=== PATIENT | male | born 1970 | race Caucasian/White ===

== ENCOUNTER 2019-09-07 13:53 | Emergency (ER) | payer MEDICARE, SELFPAY ==
[2019-09-07 13:59] VITALS: BP 140/74; PULSE 81; RESP 16; TEMP 36.8; O2SAT 95; BMI 38.7
--- NOTE | 2019-09-07 14:07 | ED_ITS ---
Entered by Gina Gallo, acting as scribe for Russell Houston DO Sep 07, 2019 13:53 HPI - Chest Pain General: Chief Complaint: Chest Pain Stated Complaint: CP Time Seen by Provider: 09/07/19 14:24 History of Present Illness: HPI narrative: 49 yo male presents with chest pain. Pt states that his chest pain is radiating down his left arm. Pt states that he has had this pain for about a week. pt states that the only relief he has is when he sleeps. Pt states that he is more fatigued than usual. Pt states that he has high blood pressure. Pt states that his pain will worsen with exacerbation. MD complaint: chest pain Associated symptoms: Deny abdominal pain, dyspnea, fever(s), nausea or vomiting Review of Systems Const: Denies: fever, chills, body aches, fatigue, malaise or night sweats Eyes: Denies: change in vision or blurry vision ENMT: Denies: throat pain, oral sores/lesions, dental pain, nasal discharge or nasal congestion Card: Reports: chest pain and other (pain with palpation) Resp: Denies: shortness of breath, productive cough, non-productive cough or wheezing GI: Denies: abdominal pain, nausea, vomiting, vomiting blood, coffee grounds in vomit, difficulty swallowing, heartburn/indigestion, diarrhea, constipation, cramping, blood in stool or black tarry stool : Denies: flank pain, difficulty urinating, painful urination, urinary frequency, urinary urgency, urinary incontinence or blood in urine Musc: Denies: neck pain, back pain, extremity pain, extremity swelling, joint pain or joint swelling Skin/Breast: Denies: rash, itching or redness Neuro: Denies: headache, numbness in extremities, weakness in extremities, changes in sensation, lack of coordination, difficulty walking, frequent falls, dizziness, vertigo or confusion Psych: Denies: anxiety, depression, loss of interest, visual hallucinations, auditory hallucinations, suicidal ideation or homicidal ideation Endo: Denies: excessive urination, excessive thirst, tired all the time or cold intolerance Indra/Lymph: Denies: easy bruising, easy bleeding, petechiae, enlarged lymph nodes or tender lymph nodes PFSH ED PFSH: Statuses (acute, chronic, etc) shown below reflect problem list status as previously entered and may not be historically accurate Medical History Hypertension (Acute) Surgical History History of shoulder surgery (Acute) Social History Smoking and tobacco status: current every day smoker Physical Exam Const: COMMON NORMALS: average body habitus, oriented x3 and alert GENERAL APPEARANCE: cooperative, comfortable, well kempt and well developed NUTRITIONAL APPEARANCE: obese ORIENTATION/CONSCIOUSNESS: Yes awake, Yes oriented to person and Yes oriented to place HENMT: COMMON NORMALS: normocephalic, head/scalp atraumatic, EAC's normal, TM's normal bilaterally, external nose normal, moist oral mucous membranes and oropharynx normal HEAD & SCALP: normocephalic and atraumatic NOSE: external nose normal EXTERNAL AUDITORY CANAL: EAC's normal TYMPANIC MEMBRANE: TM's normal bilaterally MOUTH: oral and palatal mucosa normal, lip normal and tongue normal THROAT: posterior oropharynx normal and tonsils n ormal Eye: COMMON NORMALS: PERRL, EOMs intact bilaterally, conjunctivae normal and no scleral icterus CONJUNCTIVA: Yes conjunctivae normal PUPIL: Yes PERRL Neck/C-Spine: COMMON NORMALS: full ROM, no lymphadenopathy, supple, no meningeal signs and thyroid normal THYROID: thyroid normal and asymmetrical Lymph: LYMPHATIC: no lymphadenopathy noted Resp: COMMON NORMALS: normal respiratory effort, no retractions, no use of accessory muscles and clear to auscultation bilaterally AUSCULTATION: clear to auscultation bilaterally Cardio: COMMON NORMALS: regular rate and regular rhythm RATE: regular rate RHYTHM: regular rhythm HEART SOUNDS: no murmurs GI: COMMON NORMALS: normal to inspection, nondistended, normoactive bowel sounds, soft to palpation and no hepatosplenomegaly PALPATION: Yes soft and Yes no hepatosplenomegaly : COMMON NORMALS: Yes no CVA tenderness BLADDER/KIDNEY EXAM: Yes no CVA tenderness Back/Pelvis: COMMON NORMALS: no CVA tenderness LUMBAR SPINE/LOWER BACK: Yes normal to inspection Extremity: COMMON NORMALS: no clubbing, cyanosis or edema, no calf tenderness and no pedal edema Neuro: COMMON NORMALS: oriented x3 SENSORIUM/ORIENTATION: Yes alert, Yes oriented to person and Yes oriented to place MENINGEAL SIGNS: Yes no meningeal signs Psych: APPEARANCE: Yes well kempt Skin: COMMON NORMALS: no rashes or lesions noted and skin turgor normal GENERAL SKIN EXAM: no rashes or lesions noted and turgor normal Course ED course: He has had this for several weeks actually we will go ahead and discharge him home set him up for an outpatient stress test. Vital Signs: Vital signs: Vital Signs Temperature 98.3 F 09/07/19 13:59 Pulse Rate 82 09/07/19 17:32 Respiratory Rate 18 09/07/19 17:32 Blood Pressure 104/65 09/07/19 17:32 Pulse Oximetry 98 09/07/19 17:32 MDM - Chest Pain Lab Data: Labs: Lab Results 09/07/19 09/07/19 09/07/19 Range/Units 14:36 14:36 14:36 WBC 10.9 H (4.0-10.0) 10^3/ uL RBC 5.54 H (4.1-5.3) 10^6/u L Hgb 15.8 (11.7-16.6) g/dL Hct 46.7 (42.0-52.0) % MCV 84.3 (80-94) fL MCH 28.5 (28.0-34.0) pg MCHC 33.8 (30.0-36.0) g/dL RDW 12.7 (12.1-15.1) % Plt Count 242 (130-400) 10^3/c mm MPV 10.6 H (7.4-10.4) fL Neut % (Auto) 71.9 % Lymph % (Auto) 21.0 % [place] % (Auto) 4.2 % Eos % (Auto) 2.1 % Baso % (Auto) 0.5 % Neut # (Auto) 7.9 H (1.8-7.7) 10^3/u L Lymph # (Auto) 2.3 (0.8-4.8) 10^3/u L [place] # (Auto) 0.5 (0.2-0.9) 10^3/u L Eos # (Auto) 0.2 (0.0-0.8) 10^3/u L Baso # (Auto) 0.1 (0.0-0.1) 10^3/u L Nucleated RBC % (a uto) 0 % Nucleated RBCs # 0.0 /100WBC Sodium 137 (136-145) mmol/L Potassium 3.6 (3.5-5.1) mmol/L Chloride 98 (98-107) mmol/L Carbon Dioxide 25 (22-29) mmol/L Anion Gap 17.6 (5-19) BUN 13 (6-20) mg/dL Creatinine 1.2 (0.7-1.2) mg/dL GFR Calculation 64.9 L (90-130) mL/min Glucose 166 H (65-115) mg/dL Calcium 9.9 (8.5-10.5) mg/dL Total Bilirubin 0.4 (0.15-1.2) mg/dL AST 19 (0-40) U/L ALT 26 (0-41) U/L Alkaline Phosphata se 99 (40-130) IU/L Troponin T Baselin e 7 (0-15) ng/mL Troponin T 120 Min [place] (0-15) ng/mL Delta Troponin T (0-10) ABS# Total Protein 6.9 (6.6-8.7) g/dL Albumin 4.0 (3.5-5.2) g/dL Globulin 2.9 (1.3-4.6) g/dL 09/07/19 Range/Units 16:34 WBC (4.0-10.0) 10^3/ uL RBC (4.1-5.3) 10^6/u L Hgb (11.7-16.6) g/dL Hct (42.0-52.0) % MCV (80-94) fL MCH (28.0-34.0) pg MCHC (30.0-36.0) g/dL RDW (12.1-15.1) % Plt Count (130-400) 10^3/c mm MPV (7.4-10.4) fL Neut % (Auto) % Lymph % (Auto) % [place] % (Auto) % Eos % (Auto) % Baso % (Auto) % Neut # (Auto) (1.8-7.7) 10^3/u L Lymph # (Auto) (0.8-4.8) 10^3/u L [place] # (Auto) (0.2-0.9) 10^3/u L Eos # (Auto) (0.0-0.8) 10^3/u L Baso # (Auto) (0.0-0.1) 10^3/u L Nucleated RBC % (a uto) % Nucleated RBCs # /100WBC Sodium (136-145) mmol/L Potassium (3.5-5.1) mmol/L Chloride (98-107) mmol/L Carbon Dioxide (22-29) mmol/L Anion Gap (5-19) BUN (6-20) mg/dL Creatinine (0.7-1.2) mg/dL GFR Calculation (90-130) mL/min Glucose (65-115) mg/dL Calcium (8.5-10.5) mg/dL Total Bilirubin (0.15-1.2) mg/dL AST (0-40) U/L ALT (0-41) U/L Alkaline Phosphata se (40-130) IU/L Troponin T Baselin e (0-15) ng/mL Troponin T 120 Min [place] 9.28 (0-15) ng/mL Delta Troponin T 2.28 (0-10) ABS# Total Protein (6.6-8.7) g/dL Albumin (3.5-5.2) g/dL Globulin (1.3-4.6) g/dL Discharge Plan Discharge Patient Disposition: Home, Self-Care Clinical Impression: Atypical chest pain Condition: Stable Prescriptions: No Action aspirin 325 mg Tablet 325 mg PO DAILY RF: 0 lisinopril 20 mg Tablet 20 mg PO DAILY RF: 0 Discharge Orders: Discharge Order (Routine); Ordered 09/07/19 Ordered By: Russell Houston Referrals: Ananda Mccann MD [Primary Care Provider] - Discharge Diet: Usual diet Discharge Activity: Increase activity as tolerated Activity Restrictions/Additional Instructions: Case management will call with schedule a stress test, return for worsening problems Discharge Date/Time: 09/07/19 17:33 Coding Level of Care Code ED Transition Lead for Chg Fwd Exam Problem Focused The documentation recorded by the Sabino galeana Kialy, accurately reflects the service I personally performed and the decisions made by Celso munoz Curtis L, DO Sep 07, 2019 13:53
[2019-09-07 14:15] VITALS: BP 123/73; PULSE 72; RESP 18; O2SAT 96
--- NOTE | 2019-09-07 14:32 | ECG_ITS ---
Measurements Intervals [place] Rate: 83 P: 37 [place]: 136 QRS: -1 QRSD: 102 T: 52 QT: 358 QTc: 423 SINUS RHYTHM VOLTAGE CRITERIA FOR LVH [MEETS CRITERIA IN ONE OF: R(aVL), S(V1), R(V5), R(V5/V6) NONSPECIFIC T-WAVE ABNORMALITY No previous ECG available for comparison Electronically Signed On 09-08-2019 0:19:55 FITNESS DIRECTOR by Eve Chatterjee M.D. [id number]
--- NOTE | 2019-09-07 14:33 | XR_ITS ---
WS: [id number] ONE VIEW CHEST HISTORY: 49 years old Male with chest pain AP upright chest no comparison FINDINGS: No pneumothorax, pleural effusion, consolidation. Lung volumes decreased. Heart size and pulmonary va scular markings unremarkable. No subdiaphragmatic free air. Prior left rotator cuff repair XR/XR chest 1V portable [id number] IMPRESSION: Low lung volumes without definite acute cardiopulmonary findings.
[2019-09-07 15:00] LABS: Basophils # 0.1 10^3/uL (0.0-0.1); Basophils % 0.5 %; Eosinophils # 0.2 10^3/uL (0.0-0.8); Eosinophils % 2.1 %; Hematocrit 46.7 % (42.0-52.0); Hemoglobin 15.8 g/dL (11.7-16.6); Lymphocytes # 2.3 10^3/uL (0.8-4.8); Mean Corpuscular HGB Conc 33.8 g/dL (30.0-36.0); Mean Corpuscular Hemoglobin 28.5 pg (28.0-34.0); Mean Corpuscular Volume 84.3 fL (80-94); Mean Platelet Volume 10.6 fL (7.4-10.4); Monocytes # 0.5 10^3/uL (0.2-0.9); Monocytes % 4.2 %; Neutrophils # 7.9 10^3/uL (1.8-7.7); Neutrophils % 71.9 %; Nucleated Red Blood Cells % 0 %; Platelet Count 242 10^3/cmm (130-400); Red Blood Count 5.54 10^6/uL (4.1-5.3); Red Cell Distribution Width 12.7 % (12.1-15.1); White Blood Count 10.9 10^3/uL (4.0-10.0)
[2019-09-07 15:20] LABS: Alanine Aminotransferase 26 U/L (0-41); Alkaline Phosphatase 99 IU/L (40-130); Anion Gap 17.6 (5-19); Aspartate Amino Transferase 19 U/L (0-40); Blood Urea Nitrogen 13 mg/dL (6-20); Calcium 9.9 mg/dL (8.5-10.5); Carbon Dioxide 25 mmol/L (22-29); Chloride 98 mmol/L (98-107); Globulin 2.9 g/dL (1.3-4.6); Glomerular Filtration Rate 64.9 mL/min (90-130); Glucose 166 mg/dL (65-115); Potassium 3.6 mmol/L (3.5-5.1); Sodium 137 mmol/L (136-145); Total Bilirubin 0.4 mg/dL (0.15-1.2); Total Protein 6.9 g/dL (6.6-8.7)
[2019-09-07 15:21] LABS: Troponin(5th) Baseline 7 ng/mL (0-15)
[2019-09-07 17:12] LABS: Troponin 5 2HR 9.28 ng/mL (0-15); Troponin 5 2HR Delta 2.28 ABS# (0-10)
[2019-09-07 17:32] VITALS: BP 104/65; PULSE 82; RESP 18; O2SAT 98
--- NOTE | 2019-09-07 20:32 | ECG_ITS ---
Measurements Intervals [place] Rate: 71 P: 25 NE: 170 QRS: 5 QRSD: 91 T: 11 QT: 386 QTc: 421 SINUS RHYTHM VOLTAGE CRITERIA FOR LVH [MEETS CRITERIA IN ONE OF: R(aVL), S(V1), R(V5), R (V5/V6)+S(V1)] NONSPECIFIC T-WAVE ABNORMALITY No previous ECG available for comparison Electronically Signed On 09-08-2019 0:22:04 REFRESH TECHNICIAN by Eve Chatterjee M.D. [id number]
--- NOTE | 2019-09-13 08:27 | DCPLANNER ---
sales operations manager had message to schedule an outpatient stress test for patient. sales operations manager called patient to confirm that patient still wanted to have test completed, unable to reach patient.
== END 2019-09-07 17:33 | disposition home or self-care (01) ==
PROVIDERS: Emergency Provider Family Medicine; Family Provider Anesthesiology; PCP Anesthesiology
DX: R07.89 Other chest pain (principal); Z79.82 Long term (current) use of aspirin; I10 Essential (primary) hypertension; F17.210 Nicotine dependence, cigarettes, uncomplicated
CPT/HCPCS: 36415; 71045; 80053; 84484; 85025; 93005; 99283; 99284

== ENCOUNTER 2022-05-30 06:13 | Observation (INO) | payer MEDICARE, SELFPAY ==
[2022-05-30] VITALS (12 sets, daily range): BP systolic 136–169; BP diastolic 66–91; PULSE 45–61; RESP 16–20; TEMP 36.5–37.1; O2SAT 92–98; BMI 38.2
--- NOTE | 2022-05-30 07:14 | P.HP_ITS ---
Providers/Chief Complaint Admitting Physician: Jeremy Mares MD Primary Care Provider: Ananda Mccann MD Chief Complaint: chest pain History of Present Illness Angel Mckeon is a 52 year old male who presents with 1 week of chest discomfort on and off with nausea. He reports this first started 6 days ago, in his lower chest. It was stabbing, and he had associated sweating and nausea. He reports the first time he had it was at a bingo game, not necessarily stressful and certainly not exertional. He had several other recurrences through the week, and on Monday had a rather prolonged recurrence. He reports his upper abdomen hurts at the same time, he gets sweaty, and nauseated. He did not vomit. He reports no constipation or diarrhea. He has noticed no blood in his stool or black or tarry stools. On Monday he took some aspirin, and at the prompting of his girlfriend came into the hospital at [facility]. Sublingual nitroglycerin was given, and then nitroglycerin drip initiated. Hydralazine IV was given for hypertension. During the time at [facility] patient reported he had significant resolution of chest discomfort with treatment, but headache. He was not given any anticoagulation. From what I can decipher his troponin was not elevated. Patient reports 3 years ago he was evaluated for discomfort at [facility], and had an angiogram that demonstrated no disease. Review of Systems General: Reports: 10 or more systems reviewed and unremarkable except in HPI and below Const: Denies: fever(s) or chills Eyes: Denies: change in vision ENMT: Denies: throat pain Card: Reports: chest pain; Denies: swelling of feet/ankles or dyspnea on exertion Resp: Denies: dyspnea GI: Reports: abdominal pain and nausea; Denies: vomiting, hematemesis, hematochezia or melena : Denies: flank pain Musc: Denies: neck pain Skin/Breast: Denies: rash Neuro: Denies: headache(s) Psych: Denies: anxiety or depression Endo: Denies: polyuria Indra/Lymph: Denies: easy bruising All/Imm: Denies: urticaria Medications/Allergies Home Medications Medication Instructions Recorded Confirmed Last Taken Type aspirin 325 mg tablet 325 mg PO DAILY 09/07/19 09/07/19 09/07/19 History lisinopril 20 mg tablet 20 mg PO DAILY 09/07/19 09/07/19 09/07/19 History Allergies Allergy/AdvReac Type Severity Reaction Status Date / Time No Known Allergies Allergy Verified 09/07/19 14:03 PFSH Acute PFSH: Medical History (Updated 05/30/22 @ 07:54 by Jeremy Mares MD) Hypertension Obesity Surgical History History of shoulder surgery History of tonsillectomy Family History (Updated 05/30/22 @ 07:51 by Jeremy Mares MD) Other Hypertension Social History (Updated 05/30/22 @ 07:18 by Jeremy Mares MD) Smoking and tobacco status: current every day smoker Alcohol intake: never Other PFSH information: Supplemental PFSH Information: Adopted, but knew some history regarding parent who he reports of hypertension. Vitals/I&O/Wt Last Vital Signs Temp 97.8 F 05/30/22 06:37 Pulse 45 L 05/30/22 07:08 Resp 17 05/30/22 06:37 BP 169/78 05/30/22 06:37 Pulse Ox 98 05/30/22 06:37 O2 Del Method 05/30/22 06:18 Weight last 48 hrs Weight 110.677 kg Physical Exam Narrative: General exam complaining of a headache, wanting nitroglycerin off HEENT atraumatic and normocephalic. Pupils equally round. Oropharynx clear. Neck is supple no lymphadenopathy or thyromegaly Cardiovascular regular rate and rhythm without murmur, no S3 or S4 Lungs are clear no wheezing or crackles Abdomen is soft, tenderness is noted in the epigastric area. No obvious organomegaly. exam is deferred Extremities no cyanosis clubbing or edema, cap refill brisk Skin no rash Neuro no obvious focal deficits. Data Other Labs: EKG demonstrates sinus bradycardia with a rate of 50, left axis deviation, nonspecific ST and T wave changes. Chest x-ray was read as no acute disease Lipase normal Troponin not detectable White blood cell count 7.4, hemoglobin 13.8, platelet count 221,000 Glucose elevated at 150, creatinine 1.0, sodium 141, potassium 3.6, chloride 104, bicarb 27, calcium 9.1, LFTs normal, magnesium 2.1 INR 1.0 A&P Assessment and plan (1) Chest pain: Patient presents with significant chest pain. This is somewhat atypical. Records I have from [facility] indicate his troponin was normal. Observation currently Repeat troponin and EKG series Telemetry Wean down nitroglycerin to off if able. He is having a significant headache. Echocardiogram Request records from [facility] regarding previous angiogram He has already had aspirin today (2) Abdominal pain: Lipase and LFTs were normal Could represent peptic ulcer disease No focal tenderness right upper quadrant GI cocktail, initiate Protonix twice daily If discomfort persists, consider CT (3) Hyperglycemia: Check hemoglobin A1c (4) Hypertension: Blood pressure is markedly elevated at [facility]. Patient stopped taking his blood pressure medicine 4 months ago or so Initiate lisinopril 20 mg daily, first dose now Hydralazine as needed Avoid beta-blockers secondary to his bradycardia, which patient reports is his baseline. This appears to be sinus bradycardia. Plan Other medical problems as listed in past medical history Full code Lovenox for DVT prophylaxis Attestations Medical Necessity Statement*: Will require less than 2 midnight stay for evaluation and treatment of chest discomfort. Coding Level of Care Code Acute Senior Support Engineer for Chg Fwd Diagnoses Chest pain R07.9 Abdominal pain R10.9 Hyperglycemia R73.9 Hypertension I10
--- NOTE | 2022-05-30 07:52 | USCV_ITS ---
Angel Mckeon Age: 52 Gender: M : 1970 Exam Date: 05/30/2022 08:37 Ordering Phys: Jeremy Mares MD Technologist: Shawn Bhakta Exam Location: [facility] [place] Indication: chest pain BP: 161 / 91 HR: 48 Rhythm: Sinus Technical Quality: Adequate MEASUREMENTS (Male / Female) Normal Values 2D ECHO LV Diastolic Diameter PLAX 6.0 cm 4.2 - 5.9 / 3.9 - 5.3 cm LV Systolic Diameter PLAX 3.1 cm IVS Diastolic Thickness 0.7 cm 0.6 - 1.0 / 0.6 - 0.9 cm IVS Systolic Thickness 1.2 cm LVPW Diastolic Thickness 1.3 cm 0.6 - 1.0 / 0.6 - 0.9 cm LVPW Systolic Thickness 1.4 cm LVOT Diameter 2.0 cm LV Ejection Fraction 2D Teich 78.8 % LV Ejection Fraction MOD 2C 68.0 % LV Ejection Fraction 2C AL 70.4 % LA Diameter 3.5 cm LA Width 3.5 cm LA Height 5.5 cm RA Width 3.7 cm RA Height 4.7 cm Aorta at Sinotubular Diameter 3.2 cm IVC Diameter 1.6 cm M-MODE Aortic Annulus Diameter 3.4 cm LA Ao Ratio MM 1.0 MV E Point Septal Separation 0.4 cm DOPPLER AV Peak Velocity 165.7 cm/s LVOT Peak Velocity 130.0 cm/s AV Area Cont Eq vti 3.0 cm squared AV Area Cont Eq pk 2.5 cm squared MV Peak Velocity 99.0 cm/s MV Area PHT 4.1 cm squared Mitral E to A Ratio 0.9 MV E' Velocity 35.0 cm/s Mitral E to MV E' Ratio 10.1 Mitral E to LV E' Lateral Ratio 9.5 Mitral E to LV E' Septal Ratio 10.9 TR Peak Velocity 291.5 cm/s TR Peak Gradient 34.0 mmHg TR Mean Velocity 219.1 cm/s TR Mean Gradient 20.6 mmHg TR Velocity Time Integral 88.6 cm Right Atrial Pressure 3.0 mmHg Pulmonary Artery Systolic Pressu 37.0 mmHg PV Peak Velocity 84.0 cm/s RV Acceleration Time 0.1 s RV Ejection Time 0.3 s RV AcT/ET 0.4 FINDINGS Left Ventricle Normal left ventricular size and systolic function, EF 75 %. Mild left ventricular hypertrophy. No regional wall motion abnormalities. Right Ventricle The right ventricle is normal in size and function. Right Atrium The right atrium is normal in size. Left Atrium The left atrium is normal in size. Mitral Valve No significant stenotic or regurgitant lesions Aortic Valve Thickened aortic valve. Tricuspid Valve Trace tricuspid valve regurgitation. Pulmonic Valve Structurally normal pulmonic valve without significant stenosis. There is no pulmonic regurgitation. Pericardium Normal pericardium without effusion. Aorta Normal ascending aorta dimension. IVC Normal inferior vena cava. CONCLUSIONS Normal left ventricular size and systolic function, EF 75 %. Mild left ventricular hypertrophy. No regional wall motion abnormalities. Thickened aortic valve. [id number] Trace tricuspid valve regurgitation. Estimated pulmonary artery peak systolic pressure 37 mmHgthere is no pericardial effusion. There are no intracardiac masses. No similar previous studies are available for comparison Dr Ariella Thacker MD FACC (Electronically Signed) Final Date: 30 May 2022 17:09 S
[2022-05-30] MEDS: morphine 4 mg/mL SDV 1 mL 2 MG IVP ×2 (08:17→20:25)
[2022-05-30] MEDS: lisinopril 20 mg Tablet PO (08:17)
[2022-05-30] MEDS: enoxaparin 40 mg/0.4 mL Syringe SUBCUT (08:18)
[2022-05-30] MEDS: lidocaine 2% viscous 15 ML, aluminum-mag hydrox-simethicon 30 ML, sucralfate oral liq 1 GM PO (08:26)
[2022-05-30] MEDS: pantoprazole 40 mg SDV IVP ×2 (08:29→20:14)
[2022-05-30] MEDS: ondansetron 2 mg/ML SDV 2 mL 4 MG IVP ×2 (08:29→20:23)
[2022-05-30 08:32] LABS: Estmated Average Glucose 111; Hemoglobin A1C 5.5 % (4.0-6.0)
[2022-05-30 08:42] LABS: Troponin(5th) Baseline 8 ng/L (0-15)
--- NOTE | 2022-05-30 08:56 | PC.NURSE ---
Nitro drip stopped at 0825 am from a 2.[address] Suzan Haider. Patient was complaining of severe headache. Morphine given for severe headache. GI cocktail also given. Xray in room currently for chest xray. Girlfriend at bedside.
[2022-05-30 08:58] LABS: Thyroid Stimulating Hormone 1.44 uIU/mL (0.27-4.20)
--- NOTE | 2022-05-30 09:24 | ECG_ITS ---
[facility] Test Date: 2022-05-30 Pat Name: Angel Mckeon Department: Room: 277 Gender: Male Grapple Crew Leader: : 1970 Requested By: Jeremy Pryor Order Number: [id number] Gianfranco MD: Jadon Mcclellan M.D. Measurements Intervals [place] Rate: 49 P: 23 MO: 169 QRS: -3 QRSD: 101 T: 5 QT: 454 QTc: 411 Interpretive Statements SINUS BRADYCARDIA VOLTAGE CRITERIA FOR LVH [MEETS CRITERIA IN ONE OF: R(aVL), S(V1), R(V5), R(V5/V6)+S(V1)] NONSPECIFIC T-WAVE ABNORMALITY Compared to ECG 09/07/2019 16:30:43 Sinus rhythm no longer present T-wave abnormality still present Electronically Signed On 05-30-2022 14:54:13 CDT by Jadon Mcclellan M.D. [id number]
--- NOTE | 2022-05-30 09:26 | ECG_ITS ---
[facility] Test Date: 2022-05-30 Pat Name: Angel Mckeon Department: Room: 277 Gender: Male Bistro Attendant: : 1970 Requested By: Jeremy Pryor Order Number: [id number] Gianfranco MD: Jadon Mcclellan M.D. Measurements Intervals [place] Rate: 55 P: 27 MS: 168 QRS: -7 QRSD: 94 T: 20 QT: 442 QTc: 423 Interpretive Statements SINUS BRADYCARDIA VOLTAGE CRITERIA FOR LVH [MEETS CRITERIA IN ONE OF: R(aVL), S(V1), R(V5), R(V5/V6)+S(V1)] NONSPECIFIC T-WAVE ABNORMALITY Compared to ECG 05/30/2022 09:24:06 No significant changes Electronically Signed On 05-30-2022 14:57:29 CDT by Jadon Mcclellan M.D. [id number]
[2022-05-30 10:47] LABS: Troponin 5 2HR 6.25 ng/L (0-15)
[2022-05-30 10:57] LABS: Troponin 5 2HR Delta -1.75 ABS# (0-10)
[2022-05-30] MEDS: oxyCODONE-APAP 5-325 mg Tablet 1 TAB PO (11:51)
--- NOTE | 2022-05-30 13:38 | ECG_ITS ---
[facility] Test Date: 2022-05-30 Pat Name: Angel Mckeon Department: Room: 277 Gender: Male Vibrating Screen Operator: : 1970 Requested By: Jeremy Pryor Order Number: [id number] Gianfranco MD: Jadon Mcclellan M.D. Measurements Intervals [place] Rate: 44 P: 21 FL: 164 QRS: -7 QRSD: 97 T: 4 QT: 466 QTc: 400 Interpretive Statements SINUS BRADYCARDIA VOLTAGE CRITERIA FOR LVH [MEETS CRITERIA IN ONE OF: R(aVL), S(V1), R(V5), R(V5/V6)+S(V1)] Compared to ECG 05/30/2022 09:56:12 T-wave abnormality no longer present Electronically Signed On 05-30-2022 14:57:45 CDT by Jadon Mcclellan M.D. [id number]
[2022-05-30 15:07] LABS: Troponin 5 6HR Delta -0.6 ng/L (0-12)
[2022-05-30] MEDS: acetaminophen 325 mg Tablet 650 MG PO (16:25)
--- NOTE | 2022-05-30 19:28 | PC.NURSE ---
Handoff report given to Piyush Mccray RN.
[2022-05-31] VITALS: BP 133/88; PULSE 48; RESP 14; TEMP 36.9; O2SAT 97
[2022-05-31 04:00] VITALS: BP 134/79; PULSE 73; RESP 30; TEMP 36.6; O2SAT 95
[2022-05-31 05:16] VITALS: RESP 16; O2SAT 95
[2022-05-31] MEDS: morphine 4 mg/mL SDV 1 mL 2 MG IVP (05:16)
[2022-05-31 05:17] LABS: Basophils % 0.3 %; Eosinophils # 0.1 10^3/uL (0.0-0.8); Eosinophils % 1.3 %; Hematocrit 41.4 % (42.0-52.0); Hemoglobin 13.5 g/dL (11.7-16.6); Lymphocytes # 2.4 10^3/uL (0.8-4.8); Lymphocytes % 27.9 %; Mean Corpuscular HGB Conc 32.6 g/dL (30.0-36.0); Mean Corpuscular Hemoglobin 28.5 pg (28.0-34.0); Mean Corpuscular Volume 87.5 fl (80-94); Mean Platelet Volume 10.5 fL (7.4-10.4); Monocytes # 0.6 10^3/uL (0.2-0.9); Monocytes % 6.4 %; Neutrophils # 5.49 10^3/uL (1.8-7.7); Neutrophils % 63.8 %; Nucleated Red Blood Cells % 0 %; Platelet Count 217 10^3/cmm (130-400); Red Blood Count 4.73 10^6/uL (4.1-5.3); White Blood Count 8.6 10^3/uL (4.0-10.0)
[2022-05-31 05:27] LABS: Alanine Aminotransferase 17 U/L (0-41); Albumin Level 3.6 g/dL (3.5-5.2); Alkaline Phosphatase 78 U/L (40-130); Anion Gap 12.5 (5-19); Aspartate Amino Transferase 11 U/L (0-40); Blood Urea Nitrogen 14 mg/dL (6-20); Calcium 8.9 mg/dL (8.5-10.5); Carbon Dioxide 26 mmol/L (22-29); Chloride 106 mmol/L (98-107); Globulin 2.5 g/dL (1.3-4.6); Glomerular Filtration Rate 79.1 mL/min (90-130); Glucose 102 mg/dL (65-115); Osmolality Calculated 293 mOsm/kg (285-295); Potassium 3.5 mmol/L (3.5-5.1); Sodium 141 mmol/L (136-145); Total Bilirubin 0.3 mg/dL (0.15-1.2); Total Protein 6.1 g/dL (6.6-8.7)
[2022-05-31 06:00] VITALS: PULSE 46
[2022-05-31 07:52] VITALS: BP 141/71; PULSE 49; RESP 14; TEMP 36.8; O2SAT 94
--- NOTE | 2022-05-31 08:29 | P.DS_ITS ---
Discharge Providers Date of Admission: 05/30/22 06:13 Date of Discharge: May 31, 2022 Attending Provider at Admission: Ashlie Alvarado MD Attending Provider at Discharge: Jeremy Mares MD Primary Care Provider: Ananda Mccann MD Diagnoses at Discharge Discharge Diagnosis (1) Chest pain: Status: Acute (2) Abdominal pain: Status: Acute (3) Hyperglycemia: Status: Acute (4) Hypertension: Status: Acute Reason for Visit Reason for Visit: chest pain Hospital Course Hospital Course Angel is a 52-year-old white male who presented to [facility] with complaints of chest discomfort, abdominal discomfort. There was concern this was cardiac. He did not have any specific EKG changes. Troponins were negative. He was placed on a nitroglycerin drip, and transferred. Here he complained of abdominal discomfort, epigastric area as well as some chest discomfort. Troponins were all negative. EKG did not demonstrate any clear ischemic changes. Blood pressure was elevated. He was complaining of a headache from the nitroglycerin. Nitroglycerin drip was discontinued. He was placed on Protonix IV. Echocardiogram was obtained which demonstrated LVH, but no other severe abnormalities or regional wall motion abnormalities. Telemetry is demonstrated some sinus bradycardia which patient reported was chronic but no significant arrhythmias. Blood sugar was slightly high and hemoglobin A1c was done which was normal. He also reported some dysphagia on occasion. Records were asked for from previous hospital stay 3 years ago with chest discomfort at [facility]. Angiogram there was negative. I discussed with him that there is a low likelihood he has significant coronary disease currently, and that his current discomfort may be GI in origin. He is willing to explore outpatient evaluation, and it was thought safe to discharge him in May 31. Patient was able to ask questions, and agreed with the plan. I also asked that he consider sleep apnea and discussed this with his primary care provider. Chest and abdominal discomfort were gone by time of discharge. Secondary to significant improvement of discomfort a CT scan of abdomen and pelvis was not done at this time but could be considered as an outpatient. Physical Exam Narrative: General exam no distress Neck is supple no lymphadenopathy thyromegaly Cardiovascular regular rate and rhythm without murmur Lungs clear Abdomen is soft nontender currently positive bowel sounds Extremities no cyanosis clubbing or edema Skin no rash Discharge Data Studies Completed and Pending Completed Studies During Hospitalization Category Date Time Status CV. echo complete* [id number] Routine Ultrasound 10/31/22 07:52 Completed Laboratory Results WBC 8.6 10^3/uL (4.0-10.0) 05/31/22 04:31 RBC 4.73 10^6/uL (4.1-5.3) 05/31/22 04:31 Hgb 13.5 g/dL (11.7-16.6) 05/31/22 04:31 Hct 41.4 % (42.0-52.0) L 05/31/22 04:31 MCV 87.5 fl (80-94) 05/31/22 04:31 MCH 28.5 pg (28.0-34.0) 05/31/22 04:31 MCHC 32.6 g/dL (30.0-36.0) 05/31/22 04:31 RDW 13.0 % (12.1-15.1) 05/31/22 04:31 Plt Count 217 10^3/cmm (130-400) 05/31/22 04:31 MPV 10.5 fL (7.4-10.4) H 05/31/22 04:31 Neut % (Auto) 63.8 % 05/31/22 04:31 Lymph % (Auto) 27.9 % 05/31/22 04:31 Pepin % (Auto) 6.4 % 05/31/22 04:31 Eos % (Auto) 1.3 % 05/31/22 04:31 Baso % (Auto) 0.3 % 05/31/22 04:31 Neut # (Auto) 5.49 10^3/uL (1.8-7.7) 05/31/22 04:31 Lymph # (Auto) 2.4 10^3/uL (0.8-4.8) 05/31/22 04:31 Pepin # (Auto) 0.6 10^3/uL (0.2-0.9) 05/31/22 04:31 Eos # (Auto) 0.1 10^3/uL (0.0-0.8) 05/31/22 04:31 Baso # (Auto) 0.0 10^3/uL (0.0-0.1) 05/31/22 04:31 Nucleated RBC % (auto) 0 % 05/31/22 04:31 Nucleated RBCs # 0.0 /100WBC 05/31/22 04:31 Sodium 141 mmol/L (136-145) 05/31/22 04:31 Potassium 3.5 mmol/L (3.5-5.1) 05/31/22 04:31 Chloride 106 mmol/L (98-107) 05/31/22 04:31 Carbon Dioxide 26 mmol/L (22-29) 05/31/22 04:31 Anion Gap 12.5 (5-19) 05/31/22 04:31 BUN 14 mg/dL (6-20) 05/31/22 04:31 Creatinine 1.0 mg/dL (0.7-1.2) 05/31/22 04:31 GFR Calculation 79.1 mL/min (90-130) L 05/31/22 04:31 Glucose 102 mg/dL (65-115) 05/31/22 04:31 Estimat Average Glucose 111 05/30/22 08:00 Hemoglobin A1c 5.5 % (4.0-6.0) 05/30/22 08:00 Calculated Osmolality 293 mOsm/kg (285-295) 05/31/22 04:31 Calcium 8.9 mg/dL (8.5-10.5) 05/31/22 04:31 Total Bilirubin 0.3 mg/dL (0.15-1.2) 05/31/22 04:31 AST 11 U/L (0-40) 05/31/22 04:31 ALT 17 U/L (0-41) 05/31/22 04:31 Alkaline Phosphatase 78 U/L (40-130) 05/31/22 04:31 Troponin T Baseline 8 ng/L (0-15) 05/30/22 08:00 Troponin T 120 Minute 6.25 ng/L (0-15) 05/30/22 10:06 Delta Troponin T -1.75 ABS# (0-10) L 05/30/22 10:06 Troponin T Hi Sens 6Hr 7.40 ng/L (0-15) 05/30/22 14:00 Troponin T Hi Sens 6Hr Delta -0.6 ng/L (0-12) L 05/30/22 14:00 Total Protein 6.1 g/dL (6.6-8.7) L 05/31/22 04:31 Albumin 3.6 g/dL (3.5-5.2) 05/31/22 04:31 Globulin 2.5 g/dL (1.3-4.6) 05/31/22 04:31 TSH 1.44 uIU/mL (0.27-4.20) 05/30/22 08:00 Vitals Last Vital Signs Temp 98.3 F 05/31/22 07:52 Pulse 49 L 05/31/22 07:52 Resp 14 05/31/22 07:52 BP 141/71 05/31/22 07:52 Pulse Ox 94 05/31/22 07:52 O2 Del Method 05/31/22 07:52 Discharge Plan Discharge Patient Disposition: Home Condition: Stable Prescriptions: New aspirin [Adult Low Dose Aspirin] 81 mg tablet,delayed release (DR/EC) 81 mg PO DAILY Qty: 30 0RF lisinopril 20 mg Tablet 20 mg PO DAILY Qty: 30 0RF pantoprazole [Protonix] 40 mg tablet,delayed release (DR/EC) 40 mg PO BID Qty: 60 0RF Discontinued aspirin 325 mg Tablet 325 mg PO DAILY Discharge Orders: Discharge Order (Routine); Ordered 05/31/22 Ordered By: Jeremy Mares Referrals: Brian Mann DO [Physician] - 2 weeks (Dysphagia) Arabella Timmons APRN [Referring] - Discharge Diet: Cardiac Discharge Activity: Increase activity as tolerated Patient Instructions: Opioid Safety Activity Restrictions/Additional Instructions: Take all medicine as prescribed Follow-up with Dr. Mann regarding dysphagia Follow-up with your primary care provider 5 to 7 days Reduce caffeine, nicotine Patient's Health Concerns: Chest discomfort, dysphagia Assessment: Unlikely to be cardiac pain. Normal angiogram 3 years ago and troponins all negative. Concerned this may be related to dysphagia Plan of Treatment: Protonix 40 mg twice daily Work-up of dysphagia as outpatient Goals: No return of discomfort Discharge Attestations Time Spent in Discharge Care*: greater than 30 min Quality Metrics Clinical Quality Measures [ No reported AMI, CVA or VTE this stay] Coding Level of Care Code Acute Chg FW DC note Diagnoses Chest pain R07.9 Abdominal pain R10.9 Hyperglycemia R73.9 Hypertension I10
[2022-05-31] MEDS: lisinopril 20 mg Tablet PO (08:58)
[2022-05-31] MEDS: pantoprazole 40 mg SDV IVP (08:59)
--- NOTE | 2022-05-31 10:22 | PC.CHAP ---
Pastoral Care Encounter/Spiritual Assessment Type of Contact [] Declined e commerce manager visit [] Patient/Family/Request visit [] Outpatient visit [] Follow-up visit [] Physician referral [] Code/Alert [x] Routine visit [] Staff referral [] Actively dying [] Patient sleeping [] Family support [] [] Out of room [] Palliative care [] [] Receiving care in room [] Pre-surgical visit [] Trauma [] Long length of stay [] ICU visit [] Other: Relational/Emotional Strength [x] Patient feels connected with others/family/visitors/staff [] Distress [] Loneliness/isolation [] Abandonment Spirituality of Patient [x] Person of Liseth [] Attends Pentecostal of their Liseth [x] Believes in Prayer [] Reads Bible or Synagogue materials [] There are Spiritual issues to be addressed 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 x x] Prayer [] Active listening [] Non-anxious presence [] Spiritual/emotional support [] Crisis/trauma care [] Spiritual counseling [] Bereavement support [] Provided bereavement packet [] Provided Bible/devotional materials [] Provided toy/stuffed animal, coloring book to patient or family member [] Provided Communion [] Anointing/Point [] Salvation x[] Completed spiritual assessment [] Other: Impact on Illness or Injury [] Angry [] Fearful [] Anxious [] Often cries [] Exhaustion [] Unable to work [] Unable to attend protestant [] Unable to walk/stand [] Unable to read [] Unable to drive [] Unable to eat/drink [] Unable to sleep [] Unable to be with family [] Patient intubated [] Other: Summary Time spent with patient 10 min
[2022-05-31 10:55] VITALS: BP 141/71; PULSE 49; RESP 14; TEMP 36.8; O2SAT 94
--- NOTE | 2022-05-31 10:56 | PC.NURSE ---
discharge instructions given and explained.pt verb understanding of instructions.discharged at 1020.via ambulatory to exit.spouse to drive pt home
== END 2022-05-31 10:30 | disposition home or self-care (01) ==
PROVIDERS: Admitting Provider Student in an Organized Health Care Education/Training Program; PCP Anesthesiology; Visit Provider Internal Medicine
DX: R07.89 Other chest pain (principal); R10.9 Unspecified abdominal pain; R73.9 Hyperglycemia, unspecified; I10 Essential (primary) hypertension; R00.1 Bradycardia, unspecified; Z79.82 Long term (current) use of aspirin; E66.9 Obesity, unspecified; Z68.38 Body mass index [BMI] 38.0-38.9, adult; F17.210 Nicotine dependence, cigarettes, uncomplicated
CPT/HCPCS: 36415; 80053; 83036; 84443; 84484; 85025; 93005; 93306; 96372; C9113; G0378; G0379; J1650; J2270; J2405

== ENCOUNTER → 2022-06-07 14:04 | Outpatient (BNVA) | payer MEDICARE, SELFPAY | PROVIDERS: PCP Anesthesiology; Visit Provider Surgery | DX: R10.13 Epigastric pain (principal); K21.9 Gastro-esophageal reflux disease without esophagitis | CPT/HCPCS: 99203 ==

== ENCOUNTER 2022-06-22 08:01 | Day surgery (SDC) | payer MEDICARE, SELFPAY ==
[2022-06-20 14:01] VITALS: BMI 36.5
[2022-06-22 08:39] VITALS: BP 184/114; PULSE 60; RESP 18; TEMP 36.6; O2SAT 98
[2022-06-22] MEDS: sodium chloride 0.9% 1,000 ML 30 ML IV (08:45)
--- NOTE | 2022-06-22 09:24 | ANES.PREANE2 ---
Pre-Anesthetic Assessment Height/Weight: Height 1.73 m Weight 108.862 kg Temp Pulse Resp BP Pulse Ox O2 Del Method 97.8 F 60 18 184/114 98 06/22/22 08:39 06/22/22 08:39 06/22/22 08:39 06/22/22 08:39 06/22/22 08:39 06/22/22 08:39 Preop Diagnosis: dysphagia Operation Date: 06/22/22 10:00 Proposed Procedures p EGD Dilation W/ Balloon 26967,R10.13,K21.9(Not Applicable) - Brian Mann, DO Was Beta Kaylin taken within 24 hours: N/A Was Clonidine taken within 24 hours: N/A Last intake: Intake Last Liquid Date 06/21/22 Last Liquid Time 07:30 Last Solid Date 06/21/22 Last Solid Time 22:00 Social No alcohol and No tobacco Exam alert, oriented x 3, clear to auscultation bilaterally and regular rate & rhythm Airway Submandibular: within normal limits Cervical ROM: within normal limits Mallampati: Class III Comments: Comments: no upper teeth History/ROS No significant history except as noted Pulmonary None reported CV/HEM Hypertension bradycardia None reported Hepatic None reported GI Gastroesophageal Reflux Disease dysphagia, food gets stuck Metabolic None reported Musc/skel None reported Neuropsych Anxiety PTSD, aggressive under anesthesia Anesthetic Plan ASA status: 2 Anesthesia: Anesthesia Evaluation and MAC Risk of > 500 ml blood loss (7ml/kg in children): Yes, adequate IV access and fluids planned Medications/Allergies Home Medications Medication Instructions Recorded Confirmed Last Taken Type aspirin 81 mg tablet,delayed 81 mg PO DAILY #30 tabs 05/31/22 06/22/22 06/20/22 Rx release (Adult Low Dose Aspirin) lisinopril 20 mg tablet 20 mg PO DAILY #30 tabs 05/31/22 06/22/22 06/22/22 Rx pantoprazole 40 mg tablet,delayed 40 mg PO BID 6 weeks #84 tabs 06/07/22 06/22/22 06/22/22 Rx release (Protonix) Allergies Allergy/AdvReac Type Severity Reaction Status Date / Time No Known Allergies Allergy Verified 06/22/22 08:35 Current Medications Generic Name Dose Route Start Last Admin Trade Name Freq PRN Reason Stop Dose Admin Sodium Chloride 1,000 mls @ 30 mls/hr 06/22/22 08:30 06/22/22 08:45 Sodium Chloride 0.9% IV 06/23/22 08:29 30 mls/hr .Q24H JERICA Administration PFSH Anesthesia Medical History Hypertension Obesity Surgical History History of shoulder surgery History of tonsillectomy Family History Other Hypertension Social History Smoking and tobacco status: current every day smoker Alcohol intake: never Data Anesthesia Cardiac Studies: Echocardiogram 05/30/22
--- NOTE | 2022-06-22 10:16 | W.PM.OPSUD ---
Surgery/Procedure H&P Update DATE OF PROCEDURE: June 22, 2022 DATE H&P PERFORMED: 06/07/22 PREOP DIAGNOSIS: dysphagia PLANNED PROCEDURE: Operation Date: 06/22/22 10:00 Proposed Procedures p EGD Dilation W/ Balloon 11054,R10.13,K21.9(Not Applicable) - Brian Mann DO
[2022-06-22 10:41] VITALS: BP 143/89; PULSE 65; RESP 18; TEMP 36.3; O2SAT 95
[2022-06-22 10:50] VITALS: BP 165/106; PULSE 71; RESP 18; O2SAT 95
--- NOTE | 2022-06-22 14:10 | ANE.PACU2 ---
Inpatient post-anesthesia follow up: Airway intact: Yes Vital signs: Temperature 97.3 F Pulse Rate 71 Respiratory Rate 18 Blood Pressure 165/106 Pulse Oximetry 95 Oxygen Delivery Me thod Room Air Oxygen Flow Rate Fraction of Inspir ed Oxygen Hydration adequate: Yes Nausea and vomiting: No Pain level: 1 Mental status: Baseline
== END 2022-06-22 11:18 | disposition home or self-care (01) ==
PROVIDERS: PCP Nurse Practitioner Family; Visit Provider Surgery
DX: R13.10 Dysphagia, unspecified (principal); K22.2 Esophageal obstruction; K29.50 Unspecified chronic gastritis without bleeding; B96.81 Helicobacter pylori [H. pylori] as the cause of diseases classified elsewhere; I10 Essential (primary) hypertension; K21.9 Gastro-esophageal reflux disease without esophagitis; Z79.82 Long term (current) use of aspirin; F17.210 Nicotine dependence, cigarettes, uncomplicated
CPT/HCPCS: 43239; 43249; 88305; 88342; J2704; J7030

== ENCOUNTER → 2022-07-12 15:29 | Outpatient (BNVA) | payer MEDICARE, SELFPAY | PROVIDERS: PCP Nurse Practitioner Family; Visit Provider Surgery | DX: Z09 Encounter for follow-up examination after completed treatment for conditions other than malignant neoplasm (principal); K29.70 Gastritis, unspecified, without bleeding; B96.81 Helicobacter pylori [H. pylori] as the cause of diseases classified elsewhere | CPT/HCPCS: 99212 ==